=== PATIENT | male | born 1945 | race Caucasian/White ===

== ENCOUNTER 2018-08-03 17:55 | Inpatient (IN) ==
--- NOTE | 2018-08-03 18:45 | Diag Imaging Result Doc PS360 ---
EXAM: CHEST-1 VIEW - 08/03/2018 HISTORY: SURGICAL CLEARANCE TECHNIQUE: Portable chest COMPARISON: 04/30/2018 FINDINGS: Heart size appears within normal limits. There are some COPD changes similar to prior. There is stable right basilar granuloma from old granulomatous disease. The lungs appear clear of acute changes. There is no pleural effusion or pneumothorax identified. IMPRESSION: COPD changes. No acute changes. Electronically signed by Antonio Bhatt 08/03/2018 6:43 PM
--- NOTE | 2018-08-03 19:07 | PROVIDER DOCUMENTATION ---
HPI-General Adult - General Chief Complaint: Abdominal Pain Stated Complaint: DR GUARDADO REF-GALLBLADDER Time Seen by Provider: 08/03/18 18:34 Source: patient, family Allergies/Adverse Reactions: Patient Allergies Allergy/AdvReac Type Severity Reaction Status Date / Time No Known Allergies Allergy Verified 05/20/15 16:07 Home Medications: Home Medication List Medication Instructions Recorded Confirmed Last Taken Type Aspirin [Adult Low Dose Aspirin EC] 81 mg PO DAILY 05/20/15 08/03/18 08/03/18 History Amlodipine Besylate [Norvasc] 5 mg PO DAILY 05/21/15 08/03/18 08/03/18 History Atorvastatin Calcium [Lipitor] 80 mg PO QHS 04/30/18 08/03/18 08/02/18 History Esomeprazole [Nexium] 40 mg PO DAILY 04/30/18 08/03/18 08/03/18 History Guaifenesin [Mucinex] 400 mg PO DAILY 04/30/18 08/03/18 08/03/18 History Loratadine 10 mg PO DAILY 04/30/18 08/03/18 08/02/18 History Metoprolol [Lopressor] 50 mg PO DAILY 04/30/18 08/03/18 08/03/18 History Sitagliptin [Januvia] 50 mg PO DAILY 04/30/18 08/03/18 08/03/18 History Tamsulosin [Flomax] 0.4 mg PO DAILY 04/30/18 08/03/18 08/03/18 History Hydrocodone/Acetaminophen [[place] 1 tab PO Q6H PRN 08/03/18 08/03/18 08/03/18 History 7.5-325 Tablet] Methocarbamol [Robaxin-750] 1 tab PO Q4H PRN 08/03/18 08/03/18 08/03/18 History Ondansetron HCl [Zofran] 1 tab PO Q4H PRN 08/03/18 08/03/18 Unknown History Sulfamethoxazole/Trimethoprim 1 tab PO BID 08/03/18 08/03/18 08/03/18 History [Bactrim 400-80 mg Tablet] - History of Present Illness -Gen Adult Nature of Presenting Problems: reports that was sent directly here after having abd CT done. family or pt could not say what was for. reason for havign ct was due to low back and hip pain. +cough. no fever chills, cp, sob, abd pain, weakness. Review of Systems - Adult - REVIEW OF SYSTEMS - ADULT Constitutional: reports: no symptoms reported Eyes: reports: no symptoms reported Ears, Nose, Mouth & Throat: reports: no symptoms reported Cardiovascular: reports: no symptoms reported Respiratory: reports: no symptoms reported Gastrointestinal: reports: no symptoms reported Genitourinary: reports: no symptoms reported Musculoskeletal: reports: no symptoms reported Integumentary: reports: no symptoms reported Neurological: reports: no symptoms reported Psychiatric: reports: no symptoms reported Endocrine: reports: no symptoms reported Hematologic/Lymphatic: reports: no symptoms reported Allergic/Immunologic: reports: no symptoms reported All Other Systems: Reviewed and Negative Past History - Adult - PAST MEDICAL HISTORY-ADULT Review of Records: reports: Old Records Reviewed, Nursing Assessment Review, Medications Reviewed, Social history reviewed & non-contributory. Major Childhood Illnesses: reports: denies history Cardiovascular: reports: denies history Respiratory: reports: denies history Gastrointestinal: reports: denies history Obstetrical/Gynecological: reports: denies history Genitourinary: reports: denies history Musculoskeletal: reports: denies history Neurological: reports: denies history Endocrine/Immune: reports: denies history Other Conditions: reports: denies history - IMMUNIZATION STATUS Childhood Immunizations: See Nurse Assessment Flu Vaccine: See Nurse Assessment - FAMILY HISTORY Family History: reviewed, not pertinent - SOCIAL HISTORY Smoking: denies Substance Use: none/never Alcohol Use Frequency: never Living Situation: family Physical Exam-General - PHYSICAL EXAM-ADULT Initial Vital Signs Reviewed: Yes - CONSTITUTIONAL General Appearance: appears well, alert, no apparent distress - EYES Eyes: PERRL/EOMI, pink conjunctivae - HEAD, EARS, NOSE, MOUTH & THROAT HENMT: normocephalic/atraumatic, moist mucous membranes, normal ENT inspection, TMs normal - RESPIRATORY Respiratory: chest non-tender, normal breath sounds - CARDIOVASCULAR Cardiovascular: normal peripheral pulses, regular rate, rhythm, no edema - GASTROINTESTINAL (ABDOMEN) Abdominal Exam: normal bowel sounds, non tender, soft - MUSCULOSKELETAL Back Exam: normal inspection, no vertebral tenderness Extremity: normal range of motion, non-tender, normal gait, normal inspection - SKIN Integumentary: normal color, warm/dry - NEUROLOGIC Neurologic: grossly normal, no motor/sensory deficits - PSYCHIATRIC Psych/Mental Status: normal mood/affect, normal thought content, normal thought process, oriented x 3 Progress - PLAN OF CARE/RESULTS Progress/Plan/Lab Results: Vital Signs - 8 hr 08/03/18 18:03 Temperature 97.5 F L Pulse Rate 61 Respiratory Rate 20 Blood Pressure 158/63 O2 Sat by Pulse Oximetry 96 Orders Category Date Time Status Nursing- Obtain EKG ONCE Care 08/03/18 18:22 Active Saline Loc NOW Care 08/03/18 18:21 Active cxr [CHEST-1 VIEW] [RAD] Stat Exams 08/03/18 18:22 Completed BASIC METABOLIC PANEL [CHEM] Stat Lab 08/03/18 18:21 Uncollected BLOOD CULTURE [BLDCUL] Stat Lab 08/03/18 18:22 Uncollected CBC WITH ELECTRONIC DIFF [HEME] Stat Lab 08/03/18 18:21 Uncollected LFT [HEPATIC FUNCTION] [CHEM] Stat Lab 08/03/18 19:05 Uncollected LIPASE [CHEM] Stat Lab 08/03/18 19:05 Uncollected PROTIME WITH INR [COAG] Stat Lab 08/03/18 18:21 Uncollected PTT [COAG] Stat Lab 08/03/18 18:21 Uncollected EKG [EKG] Stat Ther 08/03/18 18:[address], [place] [address] Department of Imaging Patient: KEM CHANG ADM Date: 08/03/18 MR#: [id number] : 1945 ADM Status: PRE ER Age/Sex: 72/M Room/Bed: Loc: ED Ordering Physician: Jeannine Espinoza Family Physician: Antonio Guardado MD Reason for Procedure: SURGICAL CLEARANCE Signed EXAM: CHEST-1 VIEW - 08/03/2018 HISTORY: SURGICAL CLEARANCE TECHNIQUE: Portable chest COMPARISON: 04/30/2018 FINDINGS: Heart size appears within normal limits. There are some COPD changes similar to prior. There is stable right basilar granuloma from old granulomatous disease. The lung s appear clear of acute changes. There is no pleural effusion or pneumothorax identified. IMPRESSION: COPD changes. No acute changes. Electronically signed by Antonio Bhatt 08/03/2018 6:43 PM 08/03/181842 Interpreting Physician: Antonio Bhatt MD Dictated Date/Time: 08/03/181841 cc: Jeannine Espinoza; Antonio Guardado MD Result Diagrams: 08/03/18 18:55 08/03/18 18:55 - CONSULTS/PCP/HOSPITALIST Notification #1 *Consult/PCP/Hospitalist*: dr. Garza Time Discussed: 20:31 (see in am) Consult Disposition: Admit #2 Consult: dr. Headley Time Discussed: 20:33 Consult Disposition: Admit Departure - Departure Date of Disposition Decision: 08/03/18 Time of Disposition Decision: 20:34 DIAGNOSIS: Cholecystitis Disposition: ADMITTED INPATIENT 09 Certified Medical Emergency: Emergent Condition: Stable Referrals and Follow-Ups: Antonio Guardado MD [Primary Care Provider] - - Critical Care Note This patient required my direct & personal management of CC.: No Attestation - Physician/ ANDI Attestation The physician spent face to face time with patient:: Yes Advanced Practice Provider documentation review:: Supervising physician onsite and consulted in the evaluation and care of this patient. The physician did have a face to face encounter with the patient.
[2018-08-03 19:22] LABS: BASO# 0.03 X1000 (0.0-0.2); BASO% 0.3 % (0.0-0.8); EOS# 0.18 X1000 (0.0-0.7); EOS% 1.5 % (0.0-10.0); HEMATOCRIT 45.1 % (42.0-52.0); HEMOGLOBIN 15.3 g/dL (14.0-18.0); IMM GRAN# 0.02 X1000 (0.0-0.04); IMM GRAN% 0.2 % (0.0-0.5); LYMPH# 2.54 X1000 (1.2-3.4); LYMPH% 21.8 % (20.5-51.1); MCHC 33.9 g/dL (33-37); MCV 85.6 FL (81-99); MONO# 0.87 X1000 (0.11-0.59); MONO% 7.5 % (1.7-9.3); MPV 11.7 FL (7.4-10.4); NEUT% 68.7 % (42.2-75.2); PLT 255 X1000 (130-400); RBC 5.27 XMIL (4.7-6.1); RDW 14.6 % (11.5-14.5); WBC 11.64 X1000 (4.8-10.8)
[2018-08-03 19:30] LABS: INR 0.98; PROTIME 13.8 Seconds (11.0-16.0)
[2018-08-03 19:31] LABS: PTT 33.7 Seconds (22.3-41.8)
[2018-08-03 19:52] LABS: AGAP 12; ALB/GLOB RATIO 0.8; ALKALINE PHOSPHATASE 450 U/L (32-122); BUN 14 mg/dL (8-22); CALCIUM 9.2 mg/dL (8.8-10.2); CHLORIDE 101 mmol/L (98-107); COSMO 271; CREATININE 0.8 mg/dL (0.7-1.2); ESTIMATED GFR > 60; GLUCOSE 101 mg/dL (70-104); GOT 60 U/L (10-34); GPT 63 U/L (10-44); LIPASE 40 U/L (13-60); POTASSIUM 4.5 mmol/L (3.5-5.1); SODIUM 135 mmol/L (136-145); TCO2 22 mmol/L (25-35); TOTAL BILIRUBIN 0.85 mg/dL (0.20-1.00); TOTAL PROTEIN 8.8 g/dL (6.3-8.3)
[2018-08-03] MEDS ORDERED: NS 1,000 ML IV ONE (19:54)
[2018-08-03] MEDS ORDERED: FLAGYL 1000 MG/NS 1,000 MG/200 ML IVPB IV ONE (19:55)
[2018-08-03] MEDS ORDERED: ROCEPHIN 2 GM in NS 50 ML IV ONE (19:56)
[2018-08-03 20:54] LABS: URINE SOURCE CLEAN CATCH
[2018-08-03 21:01] LABS: BILIRUBIN URINE NEGATIVE (NEGATIVE); BLOOD URINE TRACE (NEGATIVE); COLOR YELLOW; GLUCOSE URINE NEGATIVE (NEGATIVE); KETONE URINE NEGATIVE (NEGATIVE); LEUKOCYTES URINE NEGATIVE (NEGATIVE); NITRITE URINE NEGATIVE (NEGATIVE); PH URINE 6.5; PROTEIN URINE TRACE mg/dL (NEGATIVE); SP GRAVITY URINE 1.017; TURBIDITY URINE CLEAR (CLEAR); UROBILINOGEN URINE NORMAL (NORMAL)
[2018-08-03 21:03] LABS: UR EPITHELIAL CELLS <10 /HPF (<10); URINE BACTERIA NEGATIVE /HPF; URINE RBC <10 /HPF (<10)
[2018-08-03] MEDS ORDERED: DUONEB (A & A) INH PRN (21:59)
[2018-08-03] MEDS ORDERED: ZOFRAN IV PRN (21:59)
[2018-08-03] MEDS ORDERED: VANCOMYCIN IV PER PHARMACY MISC SCH (22:00)
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
[2018-08-04] MEDS: DEMEROL IV PRN ×3 (00:03→20:30)
[2018-08-04] MEDS: PROTONIX IV SCH ×2 (00:07→20:30)
[2018-08-04] MEDS: NS 1,000 ML IV SCH ×2 (00:10→18:30)
[2018-08-04] MEDS: ZOSYN 3.375 GM in NS 50 ML IV SCH ×4 (00:16→22:50)
[2018-08-04] MEDS ORDERED: NORCO-7.5 PO ONE (00:33)
[2018-08-04] MEDS ORDERED: ROBAXIN PO ONE (00:33)
[2018-08-04] MEDS: CLARITIN PO SCH ×3 (01:08→15:55)
[2018-08-04] MEDS: LOPRESSOR PO SCH ×3 (01:08→15:55)
[2018-08-04] MEDS: LIPITOR PO SCH ×2 (01:08→20:31)
[2018-08-04] MEDS: FLOMAX PO SCH ×3 (01:08→15:55)
[2018-08-04] MEDS: BIDEX PO SCH ×3 (01:26→15:56)
[2018-08-04] MEDS ORDERED: VANCOMYCIN 2,200 MG in NS 500 ML IV ONE (01:30)
[2018-08-04] MEDS: HUMALOG SUBQ SCH ×3 (05:59→18:30)
--- NOTE | 2018-08-04 07:01 | EKG Report ---
Test Performed on : 08/03/2018 9:08:29 PM Test Reason : CP Blood Pressure : / mmHG Vent. Rate : 097 BPM Atrial Rate : 097 BPM P-R Int : 100 ms QRS Dur : 090 ms QT Int : 400 ms P-R-T Axes : 026 005 027 degrees QTc Int : 508 ms Sinus rhythm. with short HI with frequent and consecutive premature ventricular complexes. Prolonged QT Abnormal ECG When compared with ECG of 30-APR-2018 15:17, Nonspecific T wave abnormality, worse in Inferior leads QT has lengthened Unconfirmed Result
--- NOTE | 2018-08-04 07:07 | GENERAL SURGERY CONSULTATION ---
DATE: 08/04/2018 REQUESTING PHYSICIAN: Hospitalist. REASON FOR CONSULTATION: Concerning possible cholecystitis. HISTORY OF PRESENT ILLNESS: A 72-year-old male with a past medical history of hypertension, gastroesophageal reflux disease, diabetes mellitus, hyperlipidemia, and bilateral stents to his lower extremities who presented to his primary care physician with bilateral hip and back pain. He denies any kind of right upper quadrant pain. He has had a decrease in appetite, but does not have any postprandial pain. He did have a CT scan done by his primary care physician, the images which I cannot see, but the report I can, that showed what they viewed as a cholecystitis, possible emphysematous cholecystitis, although in the body of the paragraph they are somewhat hesitant in their description of the gallbladder. The patient again denies any kind of right upper quadrant pain. He does have 2 sebaceous cysts on the back of his neck, one of which is draining, that he has been treated for Bactrim for. I was asked to weigh an opinion. PAST MEDICAL HISTORY: Includes hypertension, gastroesophageal reflux disease, diabetes mellitus, hyperlipidemia. PAST SURGICAL HISTORY: Includes bilateral stents in his lower extremities, hemorrhoid surgery. REVIEW OF SYSTEMS: A full 10-point review of systems obtained and negative except as specified in the HPI. SOCIAL HISTORY: Current smoker. FAMILY HISTORY: Reviewed with the patient and noncontributory. ALLERGIES: None. HOME MEDICATIONS: Full list reviewed. PHYSICAL EXAMINATION: Vital Signs: Patient is currently afebrile. His vital signs are stable. General: No acute distress. HEENT: Normocephalic, atraumatic. Pupils equal, round, reactive to light. Mucous membranes moist. Oropharynx benign. Neck: Supple. Trachea midline. Cardiovascular: Regular rate and rhythm. Lungs: Grossly clear. Abdomen: Soft. No tenderness at all on exam. Extremities: Moves all extremities. Neurologic: Grossly intact. Skin: No signs of jaundice. Vascular: All extremities perfused. LABORATORY DATA: White blood cell count yesterday evening was 11, hematocrit normal, platelet count normal. Total bilirubin is normal. AST and ALT are slightly elevated. Alkaline phosphatase is elevated at 450. BNP is elevated at 934. Imaging, the report from the CT scan reviewed. ASSESSMENT AND PLAN: A 72-year-old with multiple medical comorbidities, possible cholecystitis and with bilateral hip pain and likely infected sebaceous cyst. 1. Possible cholecystitis. At this time, the patient really does not have any right upper quadrant pain or any history of cholecystitis like symptoms. I cannot personally review his CT scan at this time, but given the scenario, we will get a HIDA scan to evaluate better. If he does indeed have cholecystitis, I could potentially take his gallbladder out as an outpatient or one of my partners can take it out this weekend, but again, he is really having no symptoms. He does have a mild leukocytosis, but he does have an active infection in a sebaceous cyst. 2. Elevated AST and ALT, at this time it is slightly elevated. I am unsure if they are clinically significant, but again, we will get a HIDA scan. 3. Elevated alkaline phosphatase. It is over 400. In the context for having a normal bilirubin, this could be unrelated to the gallbladder. He does have bilateral hip pain and back pain, so there may be concern of issues with bone degeneration. 4. Sebaceous cyst. At this time, the wound is spontaneously draining. He will likely need to have these dealt with as an outpatient. The antibiotics that he is on will cover them. 5. Bilateral hip pain. At this time, we will get x-rays to see what it looks like. 6. Multiple medical comorbidities, currently being managed by the hospitalist service. 7. Again, in this context we will get the HIDA scan to evaluate further. If he does have cholecystitis, he is already on antibiotics which should treat him for right now, and again, he could potentially have his gallbladder out this weekend from one of my partners or we could wait. Otherwise, continue supportive care. cc: Emmett Garza MD
--- NOTE | 2018-08-04 07:18 | Diag Imaging Result Doc PS360 ---
CHEST-PORTABLE - 08/04/2018 INDICATION: follow up COMPARISON: 08/03/2018 FINDINGS: The lungs are clear. Heart size is normal. No pneumothorax or pleural effusion. IMPRESSION: Negative exam. Electronically signed by Tomer Chavez 08/04/2018 7:15 AM
[2018-08-04 07:42] LABS: BASO# 0.02 X1000 (0.0-0.2); BASO% 0.2 % (0.0-0.8); EOS# 0.15 X1000 (0.0-0.7); EOS% 1.5 % (0.0-10.0); HEMATOCRIT 39.4 % (42.0-52.0); HEMOGLOBIN 13.2 g/dL (14.0-18.0); IMM GRAN# 0.02 X1000 (0.0-0.04); IMM GRAN% 0.2 % (0.0-0.5); LYMPH# 2.09 X1000 (1.2-3.4); LYMPH% 21.2 % (20.5-51.1); MCH 29.3 PG (27-31); MCHC 33.5 g/dL (33-37); MCV 87.4 FL (81-99); MONO# 0.84 X1000 (0.11-0.59); MONO% 8.5 % (1.7-9.3); MPV 11.6 FL (7.4-10.4); NEUT# 6.74 X1000 (1.4-6.5); NEUT% 68.4 % (42.2-75.2); PLT 239 X1000 (130-400); RBC 4.51 XMIL (4.7-6.1); RDW 14.6 % (11.5-14.5); WBC 9.86 X1000 (4.8-10.8)
[2018-08-04 07:55] LABS: HEMOGLOBIN A1C 6.1 % (4.8-6.0)
[2018-08-04 08:01] LABS: AGAP 8; ALB/GLOB RATIO 0.7; ALBUMIN 3.3 g/dL (3.5-5.0); ALKALINE PHOSPHATASE 350 U/L (32-122); BUN 11 mg/dL (8-22); CALCIUM 8.6 mg/dL (8.8-10.2); CHLORIDE 105 mmol/L (98-107); COSMO 273; CREATININE 0.7 mg/dL (0.7-1.2); ESTIMATED GFR > 60; GLUCOSE 88 mg/dL (70-104); GOT 37 U/L (10-34); GPT 47 U/L (10-44); MAGNESIUM 1.9 mg/dL (1.5-2.7); POTASSIUM 4.6 mmol/L (3.5-5.1); SODIUM 137 mmol/L (136-145); TCO2 24 mmol/L (25-35); TOTAL BILIRUBIN 0.61 mg/dL (0.20-1.00); TOTAL PROTEIN 7.8 g/dL (6.3-8.3)
--- NOTE | 2018-08-04 08:11 | EKG Report ---
Test Performed on : 08/04/2018 08:00:46 AM Test Reason : chest pain Blood Pressure : / mmHG Vent. Rate : 065 BPM Atrial Rate : 065 BPM P-R Int : 124 ms QRS Dur : 088 ms QT Int : 424 ms P-R-T Axes : 052 009 048 degrees QTc Int : 440 ms Sinus rhythm. with occasional premature ventricular complexes. Otherwise normal ECG When compared with ECG of 03-AUG-2018 21:08, (Unconfirmed) Vent. rate has decreased BY 32 BPM QT has shortened Confirmed by Herve REDD, Paul ([id number]) on 08/04/2018 8:45:14 AM
--- NOTE | 2018-08-04 08:55 | Diag Imaging Result Doc PS360 ---
XRAY HIP W/PELVIS BILAT 3-4VWS - 08/04/2018 INDICATION: hip pain bilateral TECHNIQUE: Five views COMPARISON: None FINDINGS: Bones are intact and normally aligned. Hip joint spaces are preserved. No fracture or dislocation. There is a metallic stent in the left common iliac artery. IMPRESSION: No acute disease. Electronically signed by Tomer Chavez 08/04/2018 8:52 AM
[2018-08-04] MEDS ORDERED: LOPRESSOR PO SCH (09:00)
[2018-08-04] MEDS ORDERED: FLOMAX PO SCH (09:00)
[2018-08-04] MEDS ORDERED: BIDEX PO SCH (09:00)
[2018-08-04] MEDS: ASPIRIN EC PO SCH ×2 (10:24→15:55)
[2018-08-04] MEDS: NORVASC PO SCH ×2 (10:25→15:55)
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
--- NOTE | 2018-08-04 15:21 | Diag Imaging Result Doc PS360 ---
EXAM: HIDA SCAN W/O EJECT. FRACTION INDICATION: rule out cholecystitis TECHNIQUE: 5.9 mCi of technetium 99 Choletec was administered intravenously and images were obtained until the 22 minute inocente. This point, the patient refused to complete the study. COMPARISON: None. FINDINGS: There is normal hepatocellular uptake after administration of the radiotracer. Activity is seen in small bowel beginning at about eight minutes post administration. At the 22 minute inocente, which was the final image, there was no gallbladder activity. IMPRESSION: 1.Incomplete study as the patient would not continue after 22 minutes. 2.Normal small bowel activity but no gallbladder activity identified at the 22 minute inocente. Electronically signed by Ishan Rosas 08/04/2018 3:19 PM
[2018-08-04] MEDS: SODIUM CHLORIDE 0.9% INJ SCH (20:30)
[2018-08-04] MEDS: VANCOMYCIN 1,600 MG in NS 250 ML IV SCH (20:30)
[2018-08-04] MEDS ORDERED: LIPITOR PO SCH (21:00)
[2018-08-05] MEDS: HUMALOG SUBQ SCH ×5 (00:09→22:13)
[2018-08-05] MEDS: DEMEROL IV PRN ×4 (00:54→21:53)
[2018-08-05] MEDS: PROTONIX IV SCH ×2 (02:11→21:53)
[2018-08-05] MEDS: NS 1,000 ML IV SCH ×2 (02:12→17:29)
[2018-08-05] MEDS: ZOSYN 3.375 GM in NS 50 ML IV SCH ×3 (02:30→15:55)
[2018-08-05] MEDS: ROBAXIN PO PRN ×2 (02:30→21:53)
[2018-08-05] MEDS: NICODERM PATCH TD PRN (03:42)
[2018-08-05] MEDS: CLARITIN PO SCH (08:47)
[2018-08-05] MEDS: LOPRESSOR PO SCH (08:47)
[2018-08-05] MEDS: FLOMAX PO SCH (08:47)
[2018-08-05] MEDS: NORVASC PO SCH (08:47)
[2018-08-05] MEDS: ASPIRIN EC PO SCH (08:47)
[2018-08-05] MEDS: BIDEX PO SCH (08:47)
[2018-08-05] MEDS ORDERED: CLARITIN PO SCH (09:00)
--- NOTE | 2018-08-05 11:41 | GENERAL SURGERY PROGRESS NOTE ---
DATE: 08/05/2018 SUBJECTIVE: Denies any abdominal discomfort. No nausea, no vomiting. His hips and lower back continue to bother him. No fevers. No tachycardia. OBJECTIVE: Vital signs: Blood pressure 148/48. General: He is alert, sitting in the chair. Cardiovascular: Normal rate. Pulmonary: No increased work of breathing on room air. Abdomen: Soft, nontender, nondistended. Integument: Warm and dry without jaundice. LABORATORY DATA: Yesterday his white count was normal at 9. His bilirubin was normal. AST, ALT, and alkaline phosphatase are mildly elevated. Lipase is normal. IMAGING: A HIDA scan was inconclusive due to patient intolerance of the exam. He has had a hip and pelvis x-ray that shows no acute disease. We do not have the outpatient imaging. ASSESSMENT AND PLAN: This is a 72-year-old gentleman with concern for emphysematous changes to his gallbladder, obtained as an outpatient. He has no GI complaints, mostly musculoskeletal. Unclear etiology of this. I will get an ultrasound to evaluate for cholecystitis but given his elevation of alkaline phosphatase, it is concerning that this could be a primary skeletal abnormality. We will follow him along. I reviewed his medication, he is on antibiotics as well as numerous other medications. cc: Kalie James MD
--- NOTE | 2018-08-05 11:52 | PROGRESS NOTE ---
DATE: 08/05/2018 SUBJECTIVE: Mr. Gonzáles is sitting up in a chair. His main complaint is lower back and both hips. He does not hurt when he is sitting, but with weightbearing and ambulation. The family is concerned that he did not have his pain until about 2 weeks ago. The pain is described and sounds like it is musculoskeletal. We have done some x-rays on his back and his pelvis on the . The bones are intact and normally aligned. Hip joint space is preserved. No fracture or dislocation. He was not able to do the HIDA scan because his back was hurting. Review of his HIDA scan, which was not completed, incomplete study, not continued after 22 minutes. Normal small bowel activity, but no gallbladder activity. Apparently, CT scan suggested cholecystitis. He had an ultrasound last in September of 2016 at which time he had cholelithiasis and thickening of the wall. We are going to get another ultrasound today. Surgery is following. OBJECTIVE: He remains afebrile, temperature 97.6 degrees, pulse 64, respirations 16, blood pressure 145/51. Pupils are equal round. Lungs are clear in all lung haile. Cardiovascular regular rhythm and rate without murmur or S3. Abdomen is soft. Skin is warm and dry. LABORATORY: Urine output was 900 mL. Blood sugar 156, 102, 118. ASSESSMENT AND PLAN: 1. Possible cholecystitis. Ultrasound today. He really has no tenderness in the right upper quadrant or epigastrium. We do have a previous ultrasound that suggested a lot of stones. 2. Mild elevation of transaminases, nonspecific. 3. Lower back pain and hip pain which sounds musculoskeletal. 4. Sebaceous cyst on his back, which is draining. 5. Nutrition looks good. Continue current orders. cc: Alex Dominguez MD
--- NOTE | 2018-08-05 12:39 | Diag Imaging Result Doc PS360 ---
EXAM: US GB < RUQ (LIMITED) INDICATION: possible cholecystitis COMPARISON: 10/08/2016 FINDINGS: The gallbladder is packed full of shadowing stones. The gallbladder wall is thickened measuring up to 5 mm in thickness. Cholecystitis cannot be excluded. The common bile duct is normal in diameter. Sonographic Lezama's sign was reported to be negative. The liver is grossly unremarkable. Portal venous flow is hepatopetal. The pancreas is obscured by bowel gas. The aorta and IVC are grossly unremarkable. There is a simple left renal cyst. There is chronic mild prominence of the right renal pelvis as compared to the left that is stable. No acute hydronephrosis is appreciated. The kidneys are unremarkable, otherwise. IMPRESSION: Gallbladder packed full of stones with wall thickening. Cholecystitis cannot be excluded. However, the master yacht did report a negative sonographic Lezama sign. Please correlate clinically. Electronically signed by Ishan Rosas 08/05/2018 12:36 PM
[2018-08-05] MEDS: VANCOMYCIN 1,600 MG in NS 250 ML IV SCH (17:29)
--- NOTE | 2018-08-05 18:52 | Diag Imaging Result Doc PS360 ---
EXAM: CT LUMBAR SPINE W/O CONTRAST INDICATION: B hip pain TECHNIQUE: This exam was performed using automated exposure control, adjustment of mA or kV according to patient size, and/or use of iterative reconstruction technique. COMPARISON: None. FINDINGS: There is a chronic compression deformity involving the L1 vertebral body that is stable when compared to the prior CT of the abdomen and pelvis dated 09/30/2016. There is mild degenerative disc disease at L5-S1 causing mild foraminal and central canal narrowing. The central canal is largely patent, otherwise. There is no definite acute fracture, subluxation, or significant intrinsic osseous lesion. Bilateral nephrolithiasis is noted incidentally. There is aortoiliac atherosclerotic calcification. Surrounding soft tissues are essentially unremarkable, otherwise. IMPRESSION: Chronic compression deformity at L1 and mild degenerative disc disease at L5-S1. No evidence of fracture or other definite acute L-spine injury. Electronically signed by Ishan Rosas 08/05/2018 6:50 PM
--- NOTE | 2018-08-05 19:04 | Diag Imaging Result Doc PS360 ---
EXAM: CT PELVIS W/O CONTRAST INDICATION: B hip pain TECHNIQUE: This exam was performed using automated exposure control, adjustment of mA or kV according to patient size, and/or use of iterative reconstruction technique. COMPARISON: None. FINDINGS: There is degenerative arthropathy at the sacroiliac joints. There are degenerative changes at both hips with superior joint space narrowing and small marginal osteophytes. There is irregularity at the anterior rim of the acetabulum with surrounding heterotopic ossification in the soft tissues. This appears chronic but was not present on a prior CT of the abdomen and pelvis dated 09/30/2016. This may have been due to an injury during the interval. Please correlate clinically. There is no evidence of acute fracture or dislocation involving either hip. The sacrum and pelvis are intact. Surrounding soft tissues are essentially unremarkable. IMPRESSION: Degenerative changes at both hips and chronic irregularity at the anterior rim of the left acetabulum as described. No evidence of acute osseous abnormality. Electronically signed by Ishan Rosas 08/05/2018 7:01 PM
[2018-08-05] MEDS ORDERED: MELATONIN PO SCH (21:15)
[2018-08-05] MEDS: LIPITOR PO SCH (21:52)
[2018-08-05] MEDS: SODIUM CHLORIDE 0.9% INJ SCH (21:53)
[2018-08-06] MEDS: ROBAXIN PO PRN ×2 (05:58→10:43)
[2018-08-06] MEDS: DEMEROL IV PRN ×2 (05:58→10:43)
[2018-08-06] MEDS: HUMALOG SUBQ SCH ×2 (06:24→10:48)
[2018-08-06 07:25] LABS: BASO# 0.03 X1000 (0.0-0.2); BASO% 0.3 % (0.0-0.8); EOS# 0.18 X1000 (0.0-0.7); EOS% 1.8 % (0.0-10.0); HEMATOCRIT 39.6 % (42.0-52.0); HEMOGLOBIN 13.4 g/dL (14.0-18.0); IMM GRAN# 0.02 X1000 (0.0-0.04); IMM GRAN% 0.2 % (0.0-0.5); LYMPH# 2.39 X1000 (1.2-3.4); LYMPH% 24.1 % (20.5-51.1); MCH 29.1 PG (27-31); MCHC 33.8 g/dL (33-37); MCV 86.1 FL (81-99); MONO# 0.68 X1000 (0.11-0.59); MONO% 6.9 % (1.7-9.3); MPV 11.4 FL (7.4-10.4); NEUT# 6.62 X1000 (1.4-6.5); NEUT% 66.7 % (42.2-75.2); PLT 277 X1000 (130-400); RDW 14.5 % (11.5-14.5); WBC 9.92 X1000 (4.8-10.8)
[2018-08-06 07:49] LABS: AGAP 11; ALB/GLOB RATIO 0.7; ALBUMIN 2.9 g/dL (3.5-5.0); ALKALINE PHOSPHATASE 265 U/L (32-122); BUN 7 mg/dL (8-22); CALCIUM 8.7 mg/dL (8.8-10.2); CHLORIDE 108 mmol/L (98-107); COSMO 276; CREATININE 0.6 mg/dL (0.7-1.2); ESTIMATED GFR > 60; GLUCOSE 110 mg/dL (70-104); GOT 34 U/L (10-34); GPT 46 U/L (10-44); MAGNESIUM 1.8 mg/dL (1.5-2.7); POTASSIUM 3.7 mmol/L (3.5-5.1); SODIUM 139 mmol/L (136-145); TCO2 20 mmol/L (25-35); TOTAL BILIRUBIN 0.53 mg/dL (0.20-1.00); TOTAL PROTEIN 7.3 g/dL (6.3-8.3)
[2018-08-06 08:06] LABS: FREE T4 1.33 ng/dL (0.93-1.70); TSH 1.87 uIUmL (0.27-4.20)
[2018-08-06] MEDS: NORVASC PO SCH (08:49)
[2018-08-06] MEDS: BIDEX PO SCH (08:49)
[2018-08-06] MEDS: FLOMAX PO SCH (08:49)
[2018-08-06] MEDS: ASPIRIN EC PO SCH (08:49)
[2018-08-06] MEDS: CLARITIN PO SCH (08:49)
[2018-08-06] MEDS: VANCOMYCIN 1,600 MG in NS 250 ML IV SCH (10:09)
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
[2018-08-06 11:27] VITALS: BP 147/55
[2018-08-06] MEDS: NS 1,000 ML IV SCH (11:37)
--- NOTE | 2018-08-06 12:32 | GENERAL SURGERY PROGRESS NOTE ---
DATE: 08/06/2018 SUBJECTIVE: Feels well. No pain. Still has some lower back and hip pain. No fever. No tachycardia. LABORATORY DATA: I reviewed his labs. White count is normal. His liver function tests remain normal with some improvement in his alkaline phosphatase. He has had CT scans of his lumbar and pelvis that showed degenerative changes. Ultrasound shows gallstones but no obvious cholecystitis. PHYSICAL EXAMINATION: General: He is alert. Abdomen: Soft. There is no tenderness. Integument: Warm and dry without jaundice. ASSESSMENT AND PLAN: A 72-year-old gentleman with gallstones, and hip and pelvis pain. This is likely degenerative in nature. There is a question whether his gallbladder is symptomatic or not. Will follow as an outpatient. From a surgical standpoint, he can go home. cc: Kalie James MD
[2018-08-06] MEDS: NICODERM PATCH TD PRN (13:35)
[2018-08-06] MEDS ORDERED: CLARITIN PO SCH (21:00)
[2018-08-06] MEDS ORDERED: LOPRESSOR PO SCH (21:00)
[2018-08-07 10:04] LABS: HEPATITIS PROFILE ACUTE SEE COMMENTS
== END 2018-08-06 13:59 | disposition home or self-care (01) | DRG 446 ==
LOC: ED 17:55 → EDIPHOLD 21:32 → SUATTDRO 21:32 → 3N 23:46
PROVIDERS: ATTEND Emergency Medicine
CPT/HCPCS: 71010; 71045; 72131; 72192; 73522; 76705; 78226; 80048; 80053; 80074; 80076; 81001; 82607; 82746; 82948; 83036; 83690; 83735; 83880; 84155; 84165; 84439; 84443; 85025; 85610; 85730; 87040; 87088; 93005; 93010; 94640; 94761; 94799; 96365; 96367; 96375; 97162; 97530; 99285; A9270; A9537; C9113; J0696; J2175; J2543; J3370; J7030; J7040; J7050; S0030; S0164; XXXXX